=== PATIENT | female | born 1965 | race Caucasian/White ===

== ENCOUNTER 2020-12-22 11:29 | Emergency (ER) | payer OTHER ==
[~2020-12-22] VITALS: Ht 160 cm; Wt 87.1 kg
[2020-12-22] MEDS ORDERED: PROAIR HFA8.5 GM INH (11:41)
[2020-12-22] MEDS ORDERED: DORYX MPC120 MG PO (11:41)
[2020-12-22] MEDS ORDERED: STIOLTO RESPIMAT4 GM INH (11:41)
[2020-12-22] MEDS ORDERED: PREDNISONE 10 M10 MG PO ×2 (11:41→14:11)
[2020-12-22] MEDS ORDERED: METFORMIN HCL500 M3 PO (11:42)
[2020-12-22] MEDS ORDERED: ATENOLOL 25MG T25 M1 PO (11:42)
[2020-12-22] MEDS ORDERED: COZAAR 25 MG TA25 M1 PO (11:42)
[2020-12-22] MEDS ORDERED: DRIZALMA SPRINK40 MG PO (11:42)
[2020-12-22] MEDS ORDERED: CRESTOR5 MG PO (11:42)
[2020-12-22 12:54] LABS: ABSOLUTE BASOPHILS 0.1 thou/uL (0.0-0.2); ABSOLUTE EOSINOPHILS 0.1 thou/uL (0.0-0.7); ABSOLUTE LYMPHOCYTES 3.5 thou/uL (0.8-5.3); ABSOLUTE MONOCYTES 0.7 thou/uL (0.0-1.2); ABSOLUTE NEUTROPHILS 13.5 thou/uL (1.6-8.1); BASOPHILS 0.6 %; EOSINOPHILS 0.3 %; HEMATOCRIT 41.9 % (37.0-47.0); HEMOGLOBIN 14.1 gm/dL (12.0-15.0); LYMPHOCYTES 19.8 %; MCH 31.5 pg (26.0-34.0); MCHC 33.6 g/dL (28.0-37.0); MCV 93.8 fL (80.0-100.0); MONOCYTES 3.7 %; MPV 7.8 fl. (7.2-11.1); NUCLEATED RBCS 0 /100WBC; PLATELET COUNT* 312 thou/uL (150-400); POLYS 75.6 %; RBC 4.47 mil/uL (4.20-5.00); RDW-CV 13.9 % (10.5-14.5); WBC 17.9 thou/uL (4.0-11.0)
[2020-12-22 13:04] LABS: CALCIUM 9.3 mg/dL (8.5-10.1); CREATININE 0.9 mg/dL (0.6-1.3); POTASSIUM 3.4 mmol/L (3.5-5.1)
[2020-12-22 13:09] LABS: ALBUMIN 3.5 g/dL (3.4-5.0); TOTAL BILIRUBIN 0.3 mg/dL (<0.1-1.0); TOTAL PROTEIN 7.6 g/dL (6.4-8.2)
[2020-12-22] MEDS ORDERED: APAP W/CODEINE1 TA2 PO (14:11)
[2020-12-22] MEDS ORDERED: TESSALON PERLE100 MG PO (14:11)
[2020-12-22 14:28] VITALS: BP 140/76
== END 2020-12-22 14:30 | disposition home or self-care (01) ==
LOC: M.ERS 11:29
PROVIDERS: Physician Assistant
DX: J20.9 Acute bronchitis, unspecified (principal); Z20.822 Contact with and (suspected) exposure to COVID-19; E11.9 Type 2 diabetes mellitus without complications; I10 Essential (primary) hypertension; E78.5 Hyperlipidemia, unspecified; Z95.5 Presence of coronary angioplasty implant and graft; Z88.8 Allergy status to other drugs, medicaments and biological substances

== ENCOUNTER → 2021-01-25 | Outpatient (CLI) | payer OTHER ==
[~2021-01-25] MED LIST: APAP W/CODEINE1 TA2 PO; ATENOLOL 25MG T25 M1 PO; COZAAR 25 MG TA25 M1 PO; CRESTOR5 MG PO; DORYX MPC120 MG PO; DRIZALMA SPRINK40 MG PO; METFORMIN HCL500 M3 PO; PREDNISONE 10 M10 MG PO; PROAIR HFA8.5 GM INH; STIOLTO RESPIMAT4 GM INH; TESSALON PERLE100 MG PO
== END ==
LOC: M.RAD 10:12
PROVIDERS: ATTEND Family Medicine
DX: Z12.31 Encounter for screening mammogram for malignant neoplasm of breast (principal); N64.89 Other specified disorders of breast

== ENCOUNTER → 2021-04-12 | Outpatient (CLI) | payer OTHER ==
[2021-04-12 08:12] LABS: CALCIUM 8.5 mg/dL (8.5-10.1); CREATININE 0.8 mg/dL (0.6-1.3)
[2021-04-13 05:07] LABS: IgA 186 mg/dL (87-352); IgG 953 mg/dL (586-1602); IgM 37 mg/dL (26-217)
[2021-04-17 07:06] LABS: ANTI-SSA <0.2 AI (0.0-0.9)
[2021-04-17 18:06] LABS: ANA INTERPRETATION Negative (())
== END ==
LOC: M.MRI 06:47
PROVIDERS: ATTEND Psychiatry & Neurology Neuromuscular Medicine
DX: E11.65 Type 2 diabetes mellitus with hyperglycemia (principal); R20.0 Anesthesia of skin